=== PATIENT | female | born 1980 | race Hispanic/Latino ===

== ENCOUNTER → 2019-06-23 | Day surgery (SDC) | payer BC ==
[2019-06-21 16:41] LABS: BASOPHILS % 0.4 % (0.0-1.0); EOSINOPHILS # (AUTO) 0.4 (0.0-0.4); EOSINOPHILS % 4.4 % (0.0-6.0); HEMOGLOBIN 11.9 g/dL (12.0-16.0); LYMPHOCYTES # (AUTO) 2.7 (1.0-3.2); MEAN CORPUSCULAR HEMOGLOBIN 26.7 pg (28-32); MEAN CORPUSCULAR HGB CONC 31.3 g/dL (31-35); MEAN CORPUSCULAR VOLUME 85.4 fL (81-99); MONOCYTES # (AUTO) 0.7 (0.2-0.8); NEUTROPHILS % 60.9 % (38.7-80.0); PLATELET COUNT 311 x10e3/uL (140-360); RED BLOOD COUNT 4.45 x10e6/uL (3.6-5.1); RED CELL DISTRIBUTION WIDTH 13.9 % (11.7-14.4)
[2019-06-21 16:42] LABS: BILIRUBIN,URINE NEGATIVE (NEGATIVE); CLARITY,URINE SL CLOUDY (CLEAR); COLOR,URINE YELLOW (YELLOW); KETONES,URINE NEGATIVE (NEGATIVE); LEUKOCYTE ESTERASE ,URINE NEGATIVE (NEGATIVE); NITRITE,URINE NEGATIVE (NEGATIVE); PROTEIN,URINE DIPSTICK NEGATIVE (NEGATIVE); URINE UROBILINOGEN 0.2 mg/dL (0.2 - 1)
[~2019-06-23] MED LIST: DEXAMETHASONE SOD PHOS INJ 4 MG/ML VIAL ONE; FENTANYL CITRATE/PF 100MCG/2 ML INJ ONE; KETOROLAC TROMETHAMINE 30 MG/ML VIAL ONE; LIDOCAINE HCL 2% LOCAL INJ 5 ML SDV VIAL INJ ONE; MIDAZOLAM HCL 2 MG/2 ML VIAL ONE; MUPIROCIN22 GM TOP; NICOTINE PATCH1 EAC5 TOP; ONDANSETRON HCL INJ 2MG/ML 2ML 2 MG/ML VIAL ONE; PROPOFOL IV EMULSION 10 MG/ML 20 ML VIAL ONE; SEVOFLURANE INHAL SOLN 250 ML PEN BTL ONE; SILVER NITRATE SWABS ONE
--- OUTSIDE RECORDS SUMMARY | 2019-06-23 09:49 | XMS REPORT ---
Author Author [facility] Address Unknown Phone Unavailable Care Team Providers Care Electronic Equipment Repairmen Name Role Phone Unavailable Unavailable Problems This patient has no known problems. Allergies, Adverse Reactions, Alerts This patient has no known allergies or adverse reactions. Medications This patient has no known medications. Encounters Start Date/Time End Date/Time Encounter Type Admission Type Attending Clinicians Care Facility Care Department Encounter ID 2019-03-08 14:07:00 2019-03-08 14:07:00 Outpatient [id number]
[2019-06-23 14:30] VITALS: BP 156/98
--- NOTE | 2019-06-23 21:09 | Operative Report ---
DATE OF PROCEDURE: 06/23/2019 SURGEON: Hudson Davis MD PREOPERATIVE DIAGNOSES: Abnormal uterine bleeding, fibroid uterus, inadequate office endometrial biopsy. POSTOPERATIVE DIAGNOSES: Abnormal uterine bleeding, fibroid uterus, inadequate office endometrial biopsy and endometrial polyp. TITLE OF PROCEDURE: D and C, hysteroscopy. ANESTHESIA: General with Dr. Reyna and Raoul, speech assistant. INDICATION FOR OPERATION: The patient is a 38-year-old 3, para 2-0-1-2, with last menstrual period May 22, 2019, who presents with a history of 2 months of menses much longer than usual, each one lasting 10 days. Office endometrial biopsy was unsuccessful in ruling out endometrial carcinoma. The patient is therefore here for hysteroscopy, D and C to rule out endometrial carcinoma at this time. She is known to be status post tubal ligation in 2006. FINDINGS AT SURGERY: There was a polyp versus fibroid at 1 o'clock on the lower uterine segment. Otherwise, the endometrium was very smooth. Both ostia were easily visualized and curettage was performed. Adequate tissue was obtained and sent to pathology. The polyp could not be excised, however, it was biopsied. Also of note, the uterus sounded to 8.5 cm. DESCRIPTION OF PROCEDURE: The patient was taken to the operating room, placed on the table in supine position. General anesthesia was administered. The patient was then placed in the lithotomy position. The perineum was prepared and draped in usual sterile manner. Pelvic exam revealed a 6 week size anteverted uterus with no adnexal masses. The bladder had been drained by in and out catheterization. A weighted speculum was placed in the posterior vaginal wall with the aid of a right angle retractor, the anterior lip of the cervix was grasped with single-tooth tenaculum and then the uterus was sounded to 8.5 cm. Then using Chilel dilators the cervical canal was dilated up to #19. Then, the hysteroscope was placed and the endometrial cavity was visualized. First both ostia were visualized and very easily noted and pictures were taken. Then, the endometrial cavity was inspected. The fundal areas of the endometrial cavity were very smooth, however, towards the lower uterine segment there were some small polyps and 1 large appearing polyp versus fibroid at 1 o'clock at the lower uterine segment. An attempt was made to biopsy this. At 1st it was unsuccessful, however, the smaller polyps were biopsied and tissue was obtained and sent to pathology for definitive diagnosis. At this point, the hysteroscope was removed and we proceeded to perform curettage. Curettage was continued until the uterine cry was felt on all four jaramillo of the uterus. Special attention was made to curette at 1 o'clock to try and remove the polyp versus fibroid. There was no nodular feeling to the fibroid area. Therefore, it was felt that this was a polyp. After adequate tissue was obtained, we went back in with the hysteroscope and visualized and the area that was felt to be fibroid or polyp at 1 o'clock was still present. It was inspected and at this point, the scope was at an angle where biopsy of it could be taken and the tissue was quite soft on biopsies. It was felt that it was most likely a polyp and biopsies were taken of it and placed with the other polyp biopsies and sent to pathology for definitive diagnosis. Separate specimen of the endometrial scrapings were sent. There was no bleeding noted at the end of the scrapings. Therefore, all the fluid was removed from the uterus using the suction on the hysteroscope. Fluid loss was estimated to be less than 100 mL. At this point, the tenaculum was removed from the cervix and there was some bleeding noted and it did not respond to silver nitrate. Therefore, 2-0 chromic [id number] stitch was placed over the bleeding area. One stitch only was required with good hemostasis noted, thus completing the procedure. There were no complications noted. Estimated blood loss is 20 mL. The patient tolerated the procedure well, was transferred from the operating room to recovery room in stable condition. MD RAJESH Montgomery/SAVANNAHL /[id number]
== END | disposition home or self-care (01) ==
LOC: OR 09:47
PROVIDERS: ATTEND Obstetrics & Gynecology
DX: N84.0 Polyp of corpus uteri (principal); D25.9 Leiomyoma of uterus, unspecified; Z91.048 Other nonmedicinal substance allergy status; R12 Heartburn; F17.210 Nicotine dependence, cigarettes, uncomplicated; Z01.812 Encounter for preprocedural laboratory examination
CPT/HCPCS: 36415; 58558; 81003; 84702; 85025; 88305; J1100; J1885; J2001; J2250; J2405; J2704; J3010